=== PATIENT | female | born 1980 | race Caucasian/White ===

== ENCOUNTER 2017-12-27 12:29 | Emergency (ER) | payer OTHER ==
[~2017-12-27] VITALS: Ht 172.7 cm; Wt 90.7 kg
--- NOTE | 2017-12-27 12:59 | NUR ---
Patient discharged to home in stable conditon. Written and verbal after care instructions given. Patient verbalizes understanding of instructions.
== END 2017-12-27 13:00 | disposition home or self-care (01) ==
LOC: ER 12:29
DX: R60.9 Edema, unspecified (principal); Z88.2 Allergy status to sulfonamides
CPT/HCPCS: A4663

== ENCOUNTER 2018-01-16 10:21 | Emergency (ER) | payer OTHER ==
[~2018-01-16] VITALS: Ht 172.7 cm; Wt 89.4 kg
[2018-01-16 11:21] LABS: BASOPHILS # (AUTO) 0.1 K/uL (0.0-8.0); BASOPHILS % (AUTO) 0.6 % (0.0-2.0); EOSINOPHILS # (AUTO) 0.2 K/uL (0.0-0.7); EOSINOPHILS % (AUTO) 2.1 % (0.0-7.0); HEMATOCRIT 34.9 % (31.2-41.9); HEMOGLOBIN 11.8 g/dL (10.9-14.3); LYMPHOCYTES # (AUTO) 3.7 K/uL (20.0-40.0); LYMPHOCYTES % (AUTO) 33.7 % (20.5-51.5); MEAN CORPUSCULAR HEMOGLOBIN 26.2 uug (24.7-32.8); MEAN CORPUSCULAR HGB CONC 34 g/dL (32.3-35.6); MEAN CORPUSCULAR VOLUME 77.7 fL (75.5-95.3); MONOCYTES # (AUTO) 0.8 K/uL (2.0-10.0); NEUTROPHILS # (AUTO) 6.1 K/uL (1.8-8.9); NEUTROPHILS % (AUTO) 56.6 % (38.5-71.5); PLATELET COUNT (AUTO) 326 K/uL (179-408); WHITE BLOOD COUNT (AUTO) 10.8 K/uL (3.8-11.8)
[2018-01-16 11:27] LABS: CREATININE 0.6 mg/dL (0.6-1.3); POTASSIUM 3.8 mmol/L (3.5-5.1)
[2018-01-16 11:31] LABS: CREATINE KINASE, TOTAL 56 U/L (26-192)
[2018-01-16 11:33] LABS: BILIRUBIN,DIRECT 0.2 mg/dL (0.0-0.2); BILIRUBIN,TOTAL 1.3 mg/dL (0.2-1.0); TOTAL PROTEIN, SERUM 7.4 g/dL (6.4-8.2)
--- NOTE | 2018-01-16 12:39 | NUR ---
Patient discharged to home in stable conditon & brisk steady gait. Written and verbal after care instructions given to patient. Patient verbalizes understanding of instructions.
== END 2018-01-16 12:40 | disposition home or self-care (01) ==
LOC: ER 10:21
DX: J20.9 Acute bronchitis, unspecified (principal); R51 Headache; M06.9 Rheumatoid arthritis, unspecified; Z88.2 Allergy status to sulfonamides
CPT/HCPCS: 36415; 70030-TC; 71045; 85025; 87400; A4663

== ENCOUNTER 2018-03-12 08:58 | Emergency (ER) | payer SELFPAY ==
[~2018-03-12] VITALS: Ht 172.7 cm; Wt 97.1 kg
--- NOTE | 2018-03-12 09:09 | NUR ---
Dr Manuel at the bedside for MSE.
--- NOTE | 2018-03-12 09:18 | NUR ---
Pt out of ER for xray.
[2018-03-12 09:42] VITALS: BP 141/98
--- NOTE | 2018-03-12 09:43 | NUR ---
Patient discharged to home in stable conditon. Written and verbal after care instructions given. Patient verbalizes understanding of instructions.
== END 2018-03-12 09:43 | disposition home or self-care (01) ==
LOC: ER 08:58
DX: J20.9 Acute bronchitis, unspecified (principal); Z88.2 Allergy status to sulfonamides
CPT/HCPCS: 71046; A4663

== ENCOUNTER 2018-05-06 17:58 | Emergency (ER) | payer MEDICAID ==
[~2018-05-06] VITALS: Ht 172.7 cm; Wt 97.5 kg
--- NOTE | 2018-05-06 18:19 | NUR ---
PT A/OX4, PRESENTS TO THE ER C/O COUGH X 2 WEEKS. NON-PRODUCTIVE COUGH NOTED. VSS. PT DOES NOT APPEAR TO BE IN ANY RESPIRATORY DISTRESS AT THIS TIME. PT DENIES PAIN, C/P, N/V/D, DIZZINESS, HEADACHE.
--- NOTE | 2018-05-06 18:56 | NUR ---
KAVIN DURANT AT BEDSIDE FOR MSE.
--- NOTE | 2018-05-06 19:01 | NUR ---
SHIFT REPORT GIVEN TO SILVANO HORVATH.
[2018-05-06] MEDS ORDERED: BENZONATATE 100 MG CAPSULE ONE (19:08)
--- NOTE | 2018-05-06 19:13 | NUR ---
Patient discharged to home in stable conditon. Written and verbal after care instructions given. Patient verbalizes understanding of instructions. Pt left ER w kids. All belongings w pt. VSS. NAD noted.
[2018-05-06 19:14] VITALS: BP 121/88
[2018-05-06] MEDS ORDERED: BENZONATATE 100 MG CAPSULE PO ONE (19:15)
== END 2018-05-06 19:15 | disposition home or self-care (01) ==
LOC: ER 17:58
DX: J20.8 Acute bronchitis due to other specified organisms (principal); B97.89 Other viral agents as the cause of diseases classified elsewhere; Z88.2 Allergy status to sulfonamides
CPT/HCPCS: A4663